=== PATIENT | female | born 1980 | race African-American/Black ===

== ENCOUNTER 2022-07-16 19:28 | Inpatient (IN) | payer MEDICAID, OTHER ==
[~2022-07-16] VITALS: Ht 167.6 cm; Wt 79.8 kg
[2022-07-16] MEDS ORDERED: KETOROLAC 30MG/ML VIAL IM STA (22:40)
[2022-07-16 23:58] LABS: CHLORIDE 105 mEq/L (98-107)
[2022-07-17 00:21] LABS: HEMATOCRIT. 28.6 % (36.0-48.0); HEMOGLOBIN. 8.7 g/dL (12.0-16.0); MEAN CORPUSCULAR HEMOGLOBIN 20.3 pg (28.0-32.0); MEAN CORPUSCULAR VOLUME 66.9 fL (81.0-99.0); MEAN PLATELET VOLUME 9.7 fl (7.4-10.4); PLATELET 217 x1000/uL (130-400); RED BLOOD CELL COUNT 4.27 mill/uL (4.2-5.4); RED CELL DISTRIBUTION WIDTH 21.7 % (11.6-14.6)
[2022-07-17 01:46] LABS: PLATELET ESTIMATE NORMAL
[2022-07-17] MEDS ORDERED: ACETAMINOPHEN 325MG TABLET PO PRN (08:45)
[2022-07-17] MEDS ORDERED: ONDANSETRON HCL 4MG/2ML INJ IV PRN (08:45)
[2022-07-17] MEDS ORDERED: GADOTERATE MEGLUMINE 5 MMOL/10 ML VIAL IV ONE (09:04)
[2022-07-17 12:49] LABS: CLARITY URINE CLEAR (CLEAR); COLOR URINE YELLOW (YELLOW); KETONES URINE NEGATIVE (NEGATIVE); LEUKOCYTE ESTERASE URINE NEGATIVE (NEGATIVE); NITRITE URINE NEGATIVE (NEGATIVE); OCCULT BLOOD URINE NEGATIVE (NEGATIVE); PROTEIN URINE NEGATIVE (NEGATIVE); SPECIFIC GRAVITY URINE 1.009 (1.005-1.030); UROBILINOGEN URINE 0.2 E.U./dL (0.2-1.0)
[2022-07-17 20:00] VITALS: BP 133/83
[2022-07-17 21:00] VITALS: BP 137/83
[2022-07-17 21:55] LABS: TOTAL IRON BINDING CAPACITY 461 ug/dL (250-450)
[2022-07-18] VITALS (7 sets, daily range): BP systolic 105–134; BP diastolic 60–85
[2022-07-18 17:24] LABS: HEMATOCRIT. 28.7 % (36.0-48.0); HEMOGLOBIN. 8.5 g/dL (12.0-16.0); MEAN CORPUSCULAR HEMOGLOBIN 20.2 pg (28.0-32.0); MEAN CORPUSCULAR VOLUME 67.8 fL (81.0-99.0); RED BLOOD CELL COUNT 4.23 mill/uL (4.2-5.4); RED CELL DISTRIBUTION WIDTH 21.9 % (11.6-14.6)
[2022-07-18 17:30] LABS: CHLORIDE 104 mEq/L (98-107)
[2022-07-18 18:35] LABS: MEAN PLATELET VOLUME 9.7 fl (7.4-10.4); PLATELET 221 x1000/uL (130-400)
[2022-07-18 18:37] LABS: PLATELET ESTIMATE NORMAL
== END 2022-07-18 21:30 | disposition home or self-care (01) | DRG 58 ==
LOC: ER 19:28 → MICUSO 07-17 04:00 → EDBEDREQTM 07-17 04:03 → EDBEDREQ 07-17 04:03 → 7EST 07-17 18:48
PROVIDERS: ADMIT Internal Medicine; ATTEND Internal Medicine
DX: D32.9 Benign neoplasm of meninges, unspecified (principal); G90.8 Other disorders of autonomic nervous system; E66.9 Obesity, unspecified; D50.9 Iron deficiency anemia, unspecified; M25.511 Pain in right shoulder; D25.9 Leiomyoma of uterus, unspecified; Z68.28 Body mass index [BMI] 28.0-28.9, adult; V43.52XA Car driver injured in collision with other type car in traffic accident, initial encounter; Y93.89 Activity, other specified; Y92.410 Unspecified street and highway as the place of occurrence of the external cause; Y99.8 Other external cause status
CPT/HCPCS: 36415; 70553; 71045; 73030; 76857; 80048; 80053; 81003; 82728; 83540; 83550; 85025; 93005; 93306; 99285; A9577; J1885

== ENCOUNTER 2023-09-23 11:31 | Emergency (ER) | payer MEDICAID, OTHER ==
[~2023-09-23] VITALS: Ht 165.1 cm; Wt 77.1 kg
[~2023-09-23 11:31] MED LIST: ASCO500C18 PO; FERR324T17 PO; IBUP-2030 PO; MELO-104 PO
[2023-09-23 11:41] VITALS: BP 148/64; RESP 16; TEMP 98.5; O2SAT 100
[2023-09-23 11:42] VITALS: PULSE 72
[2023-09-23 12:18] LABS: BASOPHILS % 2.2 % (0.0-2.0); EOSINOPHILS % 1.6 % (0.0-5.0); HEMATOCRIT. 26.3 % (36.0-48.0); HEMOGLOBIN. 7.6 g/dL (12.0-16.0); LYMPHOCYTES % 16.1 % (20.0-50.0); MEAN CORPUSCULAR HEMOGLOBIN 17.2 pg (28.0-32.0); MEAN CORPUSCULAR HGB CONC 28.7 g/dL (31.0-37.0); MEAN CORPUSCULAR VOLUME 59.8 fL (81.0-99.0); MONOCYTES % 10.3 % (2.0-8.0); NEUTROPHILS % 69.8 % (40.0-76.0); RED CELL DISTRIBUTION WIDTH 25.7 % (11.6-14.6); WHITE BLOOD COUNT 4.2 x1000/uL (4.5-11.0)
[2023-09-23 12:22] LABS: DIFFERENTIAL COMMENT 1
[2023-09-23 12:23] LABS: ADD RBC MORPHOLOGY YES
[2023-09-23 12:35] LABS: ALANINE AMINOTRANSFERASE 8 IU/L (10-49); ALBUMIN 4.5 g/dL (3.2-4.8); ASPARTATE AMINOTRANSFERASE 17 IU/L (<34); BILIRUBIN TOTAL 0.3 mg/dL (0.1-1.0); CALCIUM 9.2 mg/dL (8.7-10.4); CARBON DIOXIDE 24 mEq/L (21-32); CHLORIDE 105 mEq/L (98-107); CREATININE 0.6 mg/dL (0.6-1.0); GLUCOSE 101 mg/dL (70-105); POTASSIUM 4.1 mEq/L (3.5-5.1); PROTEIN TOTAL 7.3 g/dL (6.0-8.3); SODIUM 136 mEq/L (136-145)
[2023-09-23 12:43] LABS: PLATELET 276 x1000/uL (130-400)
[2023-09-23 12:44] LABS: UREA NITROGEN BLOOD < 5 mg/dL (9-23)
[2023-09-23 12:45] LABS: ANISOCYTOSIS 3+; HYPOCHROMASIA 3+
[2023-09-23 12:46] LABS: MICROCYTOSIS 4+
[2023-09-23 12:48] LABS: PLATELET ESTIMATE NORMAL
[2023-09-23 13:15] LABS: CLARITY URINE CLEAR (CLEAR); COLOR URINE YELLOW (YELLOW); GLUCOSE URINE NEGATIVE (NEGATIVE); KETONES URINE NEGATIVE (NEGATIVE); LEUKOCYTE ESTERASE URINE TRACE (NEGATIVE); NITRITE URINE NEGATIVE (NEGATIVE); OCCULT BLOOD URINE NEGATIVE (NEGATIVE); PROTEIN URINE NEGATIVE (NEGATIVE); SPECIFIC GRAVITY URINE 1.018 (1.005-1.030); UROBILINOGEN URINE 0.2 E.U./dL (0.2-1.0)
[2023-09-23 13:49] LABS: MUCUS URINE 3+ /lpf (< = 2+); SQUAMOUS EPITHELIAL CELL URINE 2+ /lpf (RARE/1+)
[2023-09-23 13:51] LABS: BACTERIA URINE 3+; RBC URINE 0-2 /hpf (0-2); WBC URINE 0-2 /hpf (0-2)
== END 2023-09-23 14:56 | disposition home or self-care (01) ==
LOC: ER 11:31
DX: D64.9 Anemia, unspecified (principal); I49.9 Cardiac arrhythmia, unspecified
CPT/HCPCS: 36415; 80053; 81003; 81025; 85025; 86850; 86900; 93005; 99284